=== PATIENT | male | born 1990 | race Caucasian/White ===

== ENCOUNTER 2020-08-26 16:02 | Emergency (ER) | payer MEDICAID ==
[~2020-08-26] VITALS: Ht 170.2 cm; Wt 65.0 kg
[2020-08-26] MEDS ORDERED: IBUPROFEN 600MG TABLET PO ONE (17:30)
[2020-08-26 18:10] LABS: BASOPHILS % 0.9 % (0.0-2.0); HEMOGLOBIN. 14.8 g/dL (14.0-18.0); LYMPHOCYTES % 17.9 % (20.0-50.0); MEAN CORPUSCULAR VOLUME 90.1 fL (80.0-94.0); MEAN PLATELET VOLUME 7.9 fl (7.4-10.4); MONOCYTES % 8.2 % (2.0-8.0); PLATELET 282 x1000/uL (130-400); RED BLOOD CELL COUNT 4.77 mill/uL (4.7-6.1); RED CELL DISTRIBUTION WIDTH 12.6 % (11.6-14.6)
[2020-08-26 18:17] LABS: CHLORIDE 106 mEq/L (98-107)
[2020-08-26] MEDS ORDERED: IBUP-2028 MT (19:22)
[2020-08-26 19:48] VITALS: BP 124/56
== END 2020-08-26 19:48 | disposition home or self-care (01) ==
LOC: ER 16:02
DX: R07.9 Chest pain, unspecified (principal)
CPT/HCPCS: 36415; 71045; 80053; 85025; 85379; 93005; 99285